=== PATIENT | male | born 1980 | race African-American/Black ===

== ENCOUNTER 2016-11-16 13:07 | Emergency (ER) | payer OTHER, SELFPAY ==
[~2016-11-16] VITALS: Ht 172.7 cm; Wt 77.1 kg
[2016-11-16] MEDS ORDERED: NS 1,000 ML IV ONE (14:00)
[2016-11-16] MEDS ORDERED: KETOROLAC 30 MG/ML VIAL (J1885) IV ONE (14:00)
[2016-11-16] MEDS ORDERED: ONDANSETRON 4MG/2ML VIAL (J2405) IV ONE (14:00)
[2016-11-16 14:16] LABS: BASO % 0.5 % (0.0-1.0); EOS # 0.2 K/mm3 (0.0-0.50); LARGE UNSTAINED CELL # 0.1 K/mm3 (0.0-0.4); LARGE UNSTAINED CELL % 1.7 % (0.0-4.0); LYMPH # 1.2 K/mm3 (1.5-4.5); LYMPH % 21.8 % (24.0-44.0); MEAN CORPUSCULAR HEMOGLOBIN 33.8 pg (27.0-33.0); MEAN CORPUSCULAR HGB CONC 34.4 g/dl (32.0-36.5); MEAN CORPUSCULAR VOLUME 98.4 fl (80.0-96.0); MONO # 0.4 K/mm3 (0.0-0.8); MONO % 8.6 % (0.0-5.0); NEUTROPHILS # 3.2 K/mm3 (1.8-7.7); NEUTROPHILS % 63.3 % (36.0-66.0); PLATELET COUNT, AUTOMATED 164 k/mm3 (150-450); RED CELL DISTRIBUTION WIDTH 11.5 % (11.5-14.5)
[2016-11-16 14:24] LABS: INR 1.06
[2016-11-16 14:48] LABS: ALBUMIN 4.4 GM/DL (3.2-5.2); ALBUMIN/GLOBULIN RATIO 1.26 (1.00-1.93); ALKALINE PHOSPHATASE 61 U/L (45-117); ALT/SGPT 25 U/L (12-78); ANION GAP 5 MEQ/L (8-16); AST/SGOT 15 U/L (15-37); BILIRUBIN,DIRECT 0.2 MG/DL (0.0-0.2); BILIRUBIN,TOTAL 0.8 MG/DL (0.2-1.0); BLOOD UREA NITROGEN 7 MG/DL (7-18); CALCIUM LEVEL 9.4 MG/DL (8.5-10.1); CARBON DIOXIDE LEVEL 28 MEQ/L (21-32); CHLORIDE LEVEL 104 MEQ/L (98-107); CREATININE FOR GFR 1.61 MG/DL (0.70-1.30); GLOMERULAR FILTRATION RATE > 60.0 (>60); GLUCOSE, FASTING 157 MG/DL (70-105); POTASSIUM SERUM 3.4 MEQ/L (3.5-5.1); SODIUM LEVEL 137 MEQ/L (136-145); TOTAL PROTEIN 7.9 GM/DL (6.4-8.2)
[2016-11-16] MEDS ORDERED: ZOFR4TAB3 PO (14:56)
[2016-11-16 14:58] VITALS: BP 148/87
== END 2016-11-16 15:13 | disposition home or self-care (01) ==
LOC: M ED 14:23
DX: K52.9 Noninfective gastroenteritis and colitis, unspecified (principal); G56.22 Lesion of ulnar nerve, left upper limb
CPT/HCPCS: 80048; 80076; 81001; 83690; 85025; 85610; 85730; 96361; 96374; 96375; 99282; J1885; J2405

== ENCOUNTER → 2017-03-08 | Outpatient (CLI) | payer SELFPAY ==
[~2017-03-08] MED LIST: ZOFR4TAB3 PO
== END ==
LOC: M OUTALCOH 08:18
PROVIDERS: ATTEND Psychiatry & Neurology Psychiatry
DX: Z03.89 Encounter for observation for other suspected diseases and conditions ruled out (principal)

== ENCOUNTER 2017-04-10 16:00 | Outpatient (RCR) | payer SELFPAY | END 2017-04-12 | LOC: M OUTALCOH 16:00 | PROVIDERS: ATTEND Psychiatry & Neurology Psychiatry | DX: F12.20 Cannabis dependence, uncomplicated (principal) ==

== ENCOUNTER 2017-05-10 13:00 | Outpatient (RCR) | payer SELFPAY | END 2017-05-12 | LOC: M OUTALCOH 13:00 | PROVIDERS: ATTEND Psychiatry & Neurology Psychiatry | DX: F12.20 Cannabis dependence, uncomplicated (principal) ==

== ENCOUNTER → 2017-07-24 | Outpatient (CLI) | payer SELFPAY | LOC: M OUTALCOH 07:44 | PROVIDERS: ATTEND Psychiatry & Neurology Psychiatry | DX: F12.20 Cannabis dependence, uncomplicated (principal) ==

== ENCOUNTER 2017-08-03 11:14 | Outpatient (RCR) | payer SELFPAY | END 2017-08-12 | LOC: M OUTALCOH 11:14 | DX: F12.20 Cannabis dependence, uncomplicated (principal); Z72.0 Tobacco use ==

== ENCOUNTER → 2017-08-03 | Outpatient (REF) | payer OTHER ==
[2017-08-03 15:25] LABS: BASO % 0.7 % (0.0-1.0); EOS # 0.2 10^3/uL (0.0-0.50); EOS % 5.3 % (0.0-3.0); IMMATURE GRANULOCYTE % 0.2 % (0-0); LYMPH # 1.2 10^3/uL (1.5-4.5); LYMPH % 27.2 % (24.0-44.0); MEAN CORPUSCULAR HGB CONC 33.1 g/dl (32.0-36.5); MEAN CORPUSCULAR VOLUME 99.8 fl (80.0-96.0); MONO # 0.6 10^3/uL (0.0-0.8); MONO % 13.8 % (0.0-5.0); NEUTROPHILS # 2.4 10^3/uL (1.8-7.7); NEUTROPHILS % 52.8 % (36.0-66.0); PLATELET COUNT, AUTOMATED 196 10^3/uL (150-450); RED CELL DISTRIBUTION WIDTH 11.7 % (11.5-14.5); WHITE BLOOD COUNT 4.6 10^3/uL (4.0-10.0)
[2017-08-03 15:43] LABS: ALBUMIN 4.2 GM/DL (3.2-5.2); ALKALINE PHOSPHATASE 65 U/L (45-117); ALT/SGPT 19 U/L (12-78); ANION GAP 5 MEQ/L (8-16); AST/SGOT 13 U/L (7-37); BILIRUBIN,TOTAL 0.3 MG/DL (0.2-1.0); BLOOD UREA NITROGEN 10 MG/DL (7-18); CALCIUM LEVEL 8.6 MG/DL (8.5-10.1); CARBON DIOXIDE LEVEL 31 MEQ/L (21-32); CHLORIDE LEVEL 107 MEQ/L (98-107); CHOLESTEROL LEVEL 175 MG/DL (<200); GLOMERULAR FILTRATION RATE > 60.0 (>60); GLUCOSE, FASTING 93 MG/DL (70-105); POTASSIUM SERUM 4.2 MEQ/L (3.5-5.1); SODIUM LEVEL 143 MEQ/L (136-145); TOTAL PROTEIN 7.7 GM/DL (6.4-8.2); TRIGLYCERIDES LEVEL 82 MG/DL (<150)
== END ==
LOC: M SFHCPLAZ 11:50
DX: Z00.00 Encounter for general adult medical examination without abnormal findings (principal)